=== PATIENT | male | born 1960 | race Caucasian/White ===

== ENCOUNTER 2017-02-26 14:10 | Emergency (ER) | payer OTHER ==
[~2017-02-26] VITALS: Ht 172.7 cm; Wt 72.6 kg
[2017-02-26 14:15] VITALS: BP_SYST 149
[2017-02-26] MEDS ORDERED: NACL 0.9% 1,000 ML IV ONE ×2 (14:45→17:30)
[2017-02-26] MEDS ORDERED: FOLIC ACID 1 MG, THIAMINE HCL 100 MG, MAGNESIUM SULFATE 1 GM, MVI 10 ML in NACL 0.9% 1,... IV ONE (14:45)
[2017-02-26 14:47] LABS: BASOPHILS # (AUTO) 0.1 K/uL (0.0-0.2); BASOPHILS % (AUTO) 0.8 % (0.0-2.0); EOSINOPHILS # (AUTO) 0.1 K/uL (0.0-0.4); EOSINOPHILS % (AUTO) 0.6 % (0.0-4.0); HEMATOCRIT 45.2 % (36-54); LYMPHOCYTES # (AUTO) 2.5 K/uL (1.0-5.5); LYMPHOCYTES % (AUTO) 25.1 % (20.5-51.5); MEAN CORPUSCULAR HEMOGLOBIN 32 pg (27-31); MEAN CORPUSCULAR HGB CONC 33 % (32-36); MEAN CORPUSCULAR VOLUME 95 fL (79.0-98.0); MONOCYTES # (AUTO) 0.4 K/uL (0.0-1.0); MONOCYTES % (AUTO) 4.2 % (1.7-9.3); NEUTROPHILS # (AUTO) 6.9 K/uL (1.8-7.7); NEUTROPHILS % (AUTO) 69.3 % (40.0-70.0); PLATELET COUNT (AUTO) 293 K/uL (130-430); RED BLOOD CELL COUNT(AUTO) 4.76 MIL/uL (4.2-6.2); RED CELL DISTRIBUTION WIDTH 12.5 % (9.0-15.0)
[2017-02-26] MEDS ORDERED: ATEN50TA PO (14:53)
[2017-02-26] MEDS ORDERED: LEVO100T PO (14:53)
[2017-02-26] MEDS ORDERED: AMLO5TAB4 PO (14:53)
[2017-02-26] MEDS ORDERED: PARO40TA45 PO (14:53)
[2017-02-26] MEDS ORDERED: LIP40 PO (14:53)
[2017-02-26 15:00] LABS: CALCIUM 7.3 mg/dL (8.4-11.0); CREATININE 1.07 mg/dL (0.55-1.30)
[2017-02-26] MEDS ORDERED: KETOROLAC TROMETHAMINE 30 MG VIAL IVP ONE (15:00)
[2017-02-26 15:04] LABS: PROTHROMBIN TIME 9.9 SECS (9.5-12.5)
[2017-02-26 15:05] LABS: ALBUMIN 3.9 g/dL (3.4-4.8); TOTAL BILIRUBIN 0.6 mg/dL (0.0-1.0)
[2017-02-26 15:13] LABS: POTASSIUM 2.9 mmol/L (3.5-5.1)
[2017-02-26 15:55] LABS: BILIRUBIN,URINE NEGATIVE (NEGATIVE); CLARITY/URINE CLEAR (CLEAR); COLOR,URINE YELLOW (YELLOW); GLUCOSE,URINE NEGATIVE (NEGATIVE); KETONES,URINE NEGATIVE (NEGATIVE); LEUKOCYTE ESTERASE ,URINE NEGATIVE (NEGATIVE); NITRITE, URINE NEGATIVE (NEGATIVE); PROTEIN URINE TRACE (NEGATIVE); UROBILINOGEN,URINE 0.2 (0.2-1.0)
[2017-02-26 16:08] LABS: BARBITURATE, URINE NEGATIVE (NEG <=200); BENZODIAZEPINE, URINE NEGATIVE (NEG <=150); CANNABINOID, URINE NEGATIVE (NEG <=50); COCAINE, URINE NEGATIVE (NEG <=150); METHAMPHETAMINES SCREEN,URINE NEGATIVE (NEG <=500); OPIATE, URINE NEGATIVE (NEG <=100); PHENCYCLIDINE SCREEN,URINE NEGATIVE (NEG <=25); URINE AMPHETAMINE NEGATIVE (NEG <=500); URINE METHADONE NEGATIVE (NEG <=200); URINE OXYCODONE SCREEN NEGATIVE (NEG <=100)
[2017-02-26 16:09] LABS: UR TRICYCLIC ANTIDEPRESSANTS NEGATIVE (NEG <=300); URINE PROPOXYPHENE SCREEN NEGATIVE (NEG <=300)
[2017-02-26 16:11] LABS: BLOOD, URINE TRACE (NEGATIVE)
[2017-02-26] MEDS ORDERED: POTASSIUM CHLORIDE 20 MEQ/PKT PACKET PO ONE (16:15)
[2017-02-26 16:16] LABS: RBC,URINE 0-3 /HPF (0-3); WBC,URINE 0-3 /HPF (0-3)
[2017-02-26 16:17] LABS: BACTERIA,URINE RARE /HPF (None Seen); MUCUS,URINE None Seen /LPF (None Seen)
[2017-02-26 17:27] LABS: CALCIUM 7.3 mg/dL (8.4-11.0); CREATININE 0.81 mg/dL (0.55-1.30); POTASSIUM 3.1 mmol/L (3.5-5.1)
[2017-02-26 19:43] VITALS: BP_SYST 145
== END 2017-02-26 19:43 | disposition home or self-care (01) ==
LOC: SED 14:10
DX: G89.29 Other chronic pain (principal); R68.84 Jaw pain; F10.129 Alcohol abuse with intoxication, unspecified; F32.9 Major depressive disorder, single episode, unspecified; E87.6 Hypokalemia; Z88.0 Allergy status to penicillin; Y90.8 Blood alcohol level of 240 mg/100 ml or more
CPT/HCPCS: 36415; 70450; 70486; 80048; 80053; 80307; 81000; 82550; 84132; 84484; 85025; 85610; 85730; 93005; 96361; 96365; 96366; 96375; 99285; G0481; G0482; J1885; J3411; J3475; J3490; J7030

== ENCOUNTER 2018-09-05 23:50 | Emergency (ER) | payer OTHER ==
[~2018-09-05] VITALS: Ht 172.7 cm; Wt 72.6 kg
[~2018-09-05 23:50] MED LIST: AMLO5TAB4 PO; ATEN50TA PO; LEVO100T PO; LIP40 PO; PARO40TA PO
[2018-09-05 23:52] VITALS: BP_SYST 126
[2018-09-06] MEDS ORDERED: DIAZEPAM 5 MG TABLET (VALIUM) PO ONE (00:30)
[2018-09-06 00:40] VITALS: BP_SYST 120
== END 2018-09-06 00:40 | disposition home or self-care (01) ==
LOC: SED 23:50
DX: F10.239 Alcohol dependence with withdrawal, unspecified (principal); I10 Essential (primary) hypertension; E78.00 Pure hypercholesterolemia, unspecified; F32.9 Major depressive disorder, single episode, unspecified; Z88.0 Allergy status to penicillin; Z79.899 Other long term (current) drug therapy
CPT/HCPCS: 99283

== ENCOUNTER 2018-11-19 13:18 | Emergency (ER) | payer OTHER ==
[~2018-11-19] VITALS: Ht 172.7 cm; Wt 68.0 kg
[2018-11-19 13:55] VITALS: BP_SYST 156
--- NOTE | 2018-11-19 13:59 | NUR ---
Placed in room 08 . Placed on gambling monitor, blood pressure machine and pulse oximeter. To gown for exam. Side rails up.
--- NOTE | 2018-11-19 14:02 | NUR ---
PT AAOx4 bib bls from [employer] parking lot for alcohol withdrawal. Pt shaking and complaining of generalized body aches. Pt denies chest pain/SOB/headache. Skin pink dry and warm, speaking in full sentences. No other injuries/complaints per pt/noted. Will continue to monitor.
--- NOTE | 2018-11-19 14:30 | NUR ---
ER Dr. Baker at bedside examining patient.
[2018-11-19] MEDS ORDERED: NACL 0.9% 2,000 ML IV ONE (14:45)
[2018-11-19 15:01] LABS: BASOPHILS # (AUTO) 0.1 K/uL (0.0-0.2); EOSINOPHILS % (AUTO) 0.1 % (0.0-4.0); LYMPHOCYTES # (AUTO) 1.8 K/uL (1.0-5.5); LYMPHOCYTES % (AUTO) 24.5 % (20.5-51.5); MEAN CORPUSCULAR HEMOGLOBIN 33 pg (27-31); MEAN CORPUSCULAR HGB CONC 34 % (32-36); MEAN CORPUSCULAR VOLUME 96 fL (79.0-98.0); MONOCYTES # (AUTO) 0.5 K/uL (0.0-1.0); MONOCYTES % (AUTO) 7.1 % (1.7-9.3); NEUTROPHILS # (AUTO) 4.9 K/uL (1.8-7.7); NEUTROPHILS % (AUTO) 67.3 % (40.0-70.0); PLATELET COUNT (AUTO) 300 K/uL (130-430); RED BLOOD CELL COUNT(AUTO) 4.27 MIL/uL (4.2-6.2); RED CELL DISTRIBUTION WIDTH 17.5 % (9.0-15.0); WHITE BLOOD COUNT (AUTO) 7.3 K/uL (4.8-10.8)
--- NOTE | 2018-11-19 15:31 | NUR ---
Patient given meal tray. Patient sitting up in bed feeding self.
[2018-11-19 16:17] LABS: CALCIUM 8.6 mg/dL (8.4-11.0); CREATININE 0.81 mg/dL (0.55-1.30); POTASSIUM 3.9 mmol/L (3.5-5.1)
[2018-11-19 16:22] LABS: ALBUMIN 3.8 g/dL (3.4-4.8); TOTAL BILIRUBIN 0.5 mg/dL (0.0-1.0)
--- NOTE | 2018-11-19 16:44 | NUR ---
Pt laying comfortably in bed with no signs of distress. TV turned on per pt request.
[2018-11-19 17:25] LABS: BILIRUBIN,URINE NEGATIVE (NEGATIVE); BLOOD, URINE 1+ (NEGATIVE); CLARITY/URINE CLEAR (CLEAR); COLOR,URINE YELLOW (YELLOW); GLUCOSE,URINE NEGATIVE (NEGATIVE); KETONES,URINE 2+ (NEGATIVE); LEUKOCYTE ESTERASE ,URINE NEGATIVE (NEGATIVE); NITRITE, URINE NEGATIVE (NEGATIVE); PROTEIN URINE TRACE (NEGATIVE); UROBILINOGEN,URINE 0.2 (0.2-1.0)
[2018-11-19 17:30] VITALS: BP_SYST 140
--- NOTE | 2018-11-19 17:31 | NUR ---
Patient given written and verbal discharge instructions and verbalizes understanding. ER MD Baker discussed with patient the results and treatment provided. Patient in stable condition. ID arm band removed. IV catheter removed intact and dressing applied, no active bleeding. Rx of Ativan given. Patient educated on pain management and to follow up with PMD. Pain Scale 0. Opportunity for questions provided and answered. Medication side effect fact sheet provided.
[2018-11-19 17:37] LABS: BACTERIA,URINE None Seen /HPF (None Seen); BARBITURATE, URINE NEGATIVE (NEG <=200); BENZODIAZEPINE, URINE NEGATIVE (NEG <=150); CANNABINOID, URINE NEGATIVE (NEG <=50); COCAINE, URINE NEGATIVE (NEG <=150); METHAMPHETAMINES SCREEN,URINE NEGATIVE (NEG <=500); OPIATE, URINE NEGATIVE (NEG <=100); PHENCYCLIDINE SCREEN,URINE NEGATIVE (NEG <=25); UR TRICYCLIC ANTIDEPRESSANTS NEGATIVE (NEG <=300); URINE AMPHETAMINE NEGATIVE (NEG <=500); URINE METHADONE NEGATIVE (NEG <=200); URINE OXYCODONE SCREEN NEGATIVE (NEG <=100); URINE PROPOXYPHENE SCREEN NEGATIVE (NEG <=300); WBC,URINE 0-3 /HPF (0-3)
== END 2018-11-19 17:30 | disposition home or self-care (01) ==
LOC: SED 13:18
DX: F10.10 Alcohol abuse, uncomplicated (principal); I10 Essential (primary) hypertension; F32.9 Major depressive disorder, single episode, unspecified; E78.00 Pure hypercholesterolemia, unspecified; F17.210 Nicotine dependence, cigarettes, uncomplicated; Z88.0 Allergy status to penicillin; Z88.6 Allergy status to analgesic agent; Z88.5 Allergy status to narcotic agent; Z88.8 Allergy status to other drugs, medicaments and biological substances; Z79.899 Other long term (current) drug therapy
CPT/HCPCS: 36415; 71045; 80053; 80307; 81000; 85025; 99284; J7030

== ENCOUNTER 2021-09-28 14:53 | Emergency (ER) | payer OTHER ==
[~2021-09-28] VITALS: Ht 172.7 cm; Wt 81.6 kg
[2021-09-28 15:06] VITALS: BP_SYST 160
--- NOTE | 2021-09-28 15:15 | NUR ---
Patient to ER bed 4 for evaluation. Side rails up. Report given to César LONGORIA.
[2021-09-28 16:30] LABS: BASOPHILS % (AUTO) 0.5 % (0.0-2.0); EOSINOPHILS % (AUTO) 0.1 % (0.0-4.0); HEMOGLOBIN 14.2 g/dL (14.0-18.0); LYMPHOCYTES # (AUTO) 0.7 K/uL (1.0-5.5); LYMPHOCYTES % (AUTO) 10.5 % (20.5-51.5); MEAN CORPUSCULAR HEMOGLOBIN 32 pg (27-31); MEAN CORPUSCULAR HGB CONC 34 % (32-36); MEAN CORPUSCULAR VOLUME 93 fL (79.0-98.0); MONOCYTES # (AUTO) 0.4 K/uL (0.0-1.0); MONOCYTES % (AUTO) 5.2 % (1.7-9.3); NEUTROPHILS # (AUTO) 5.9 K/uL (1.8-7.7); NEUTROPHILS % (AUTO) 83.7 % (40.0-70.0); PLATELET COUNT (AUTO) 182 K/uL (130-430); RED CELL DISTRIBUTION WIDTH 14.7 % (9.0-15.0)
[2021-09-28 16:51] LABS: CALCIUM 9.1 mg/dL (8.4-11.0); CREATININE 0.82 mg/dL (0.55-1.30); POTASSIUM 3.7 mmol/L (3.5-5.1)
[2021-09-28 16:56] LABS: ALBUMIN 3.8 g/dL (3.4-4.8); TOTAL BILIRUBIN 1.1 mg/dL (0.0-1.0)
--- NOTE | 2021-09-28 18:07 | NUR ---
PT UNABLE TO VOID AT THIS TIME
[2021-09-28 19:04] LABS: BILIRUBIN,URINE NEGATIVE (NEGATIVE); CLARITY/URINE CLEAR (CLEAR); COLOR,URINE ORANGE (YELLOW); GLUCOSE,URINE NEGATIVE (NEGATIVE); KETONES,URINE 3+ (NEGATIVE); LEUKOCYTE ESTERASE ,URINE NEGATIVE (NEGATIVE); NITRITE, URINE NEGATIVE (NEGATIVE); PH,URINE 6.5 (5.0-8.0); PROTEIN URINE 2+ (NEGATIVE)
[2021-09-28 19:09] LABS: BLOOD, URINE TRACE (NEGATIVE)
[2021-09-28] MEDS ORDERED: FAMO-132 PO (19:12)
[2021-09-28 19:32] VITALS: BP_SYST 142
--- NOTE | 2021-09-28 19:32 | NUR ---
Patient given written and verbal discharge instructions and verbalizes understanding. ER MD discussed with patient the results and treatment provided. Patient in stable condition. ID arm band removed. Rx of PEPCID given. Patient educated on pain management and to follow up with PMD. Pain Scale 0/10 Opportunity for questions provided and answered. Medication side effect fact sheet provided.
[2021-09-28 19:34] LABS: BACTERIA,URINE FEW /HPF (None Seen); MUCUS,URINE 1+ /LPF (None Seen); RBC,URINE 0-3 /HPF (0-3); WBC,URINE 0-3 /HPF (0-3)
== END 2021-09-28 19:32 | disposition home or self-care (01) ==
LOC: SED 17:04
DX: R10.32 Left lower quadrant pain (principal); Z88.0 Allergy status to penicillin; Z88.5 Allergy status to narcotic agent; Z88.8 Allergy status to other drugs, medicaments and biological substances; Z79.899 Other long term (current) drug therapy
CPT/HCPCS: 36415; 74176; 76376; 80053; 81000; 83690; 85025; 99284; G0482